=== PATIENT | female | born 1945 | race Caucasian/White ===

== ENCOUNTER 2019-11-08 11:28 | Day surgery (SDC) | payer MEDICARE, MEDICAID ==
[2019-11-08] VITALS (9 sets, daily range): BP systolic 118–166; BP diastolic 52–121
[~2019-11-08] VITALS: Ht 157.5 cm; Wt 54.0 kg
[2019-11-08] MEDS ORDERED: EST1T PO (11:56)
[2019-11-08] MEDS ORDERED: FLUO20CA39 PO (11:56)
[2019-11-08] MEDS ORDERED: ATEN-169 PO (11:56)
[2019-11-08] MEDS ORDERED: SIMV-42 PO (11:56)
[2019-11-08] MEDS ORDERED: normal saline 1000ml 1,000 ML IV PRN (12:00)
[2019-11-08] MEDS ORDERED: LIDOcaine 1%/PF 5ML 10 MG/ML VIAL SQ ONE (12:35)
[2019-11-08] MEDS ORDERED: fentaNYL/PF 50MCG/1 ML 2ML syringe IV PRN (12:35)
[2019-11-08] MEDS ORDERED: midazolam 2 mg/2 ml injection IV PRN (12:35)
[2019-11-08] MEDS ORDERED: heparin sodium, porcine/PF 100unit/ml 5ML syringe ICATH ONE (12:35)
[2019-11-08] MEDS ORDERED: pneumococcal 23-VAL P-sac vacc 25 mcg/0.5ml vial IMVAC ONE (12:40)
[2019-11-08] MEDS ORDERED: FLU VACC QS 2019-20 (6 MOS UP) 60 MCG/0.5 ML VIAL IMVAC ONE (12:40)
[2019-11-08] MEDS ORDERED: midazolam 2 mg/2 ml injection ONE ×2 (12:46→13:07)
[2019-11-08] MEDS ORDERED: LIDOcaine 1%/PF 5ML 10 MG/ML VIAL ONE ×2 (12:46→12:47)
[2019-11-08] MEDS ORDERED: heparin sodium, porcine/PF 100unit/ml 5ML syringe ONE (12:46)
[2019-11-08] MEDS ORDERED: fentaNYL/PF 50MCG/1 ML 2ML syringe ONE ×2 (12:47→13:08)
[2019-11-08] MEDS ORDERED: FLU VACC QS2019-20 36MOS UP/PF 60 MCG/0.5 ML SYRINGE IMVAC ONE (15:35)
== END 2019-11-08 16:00 | disposition home or self-care (01) ==
LOC: SSTAY O 11:28
PROVIDERS: ATTEND Radiology Diagnostic Radiology
DX: C21.1 Malignant neoplasm of anal canal (principal); Z23 Encounter for immunization; Z79.899 Other long term (current) drug therapy
CPT/HCPCS: 36561; 76937; 77001; 99152; 99153; C1769; C1788; C1894; G0008; J1642; J2250; J3010; Q2037